=== PATIENT | female | born 1955 | race Caucasian/White ===

== ENCOUNTER 2024-01-10 12:28 | Emergency (ER) | payer BC, OTHER ==
[~2024-01-10] VITALS: Ht 165.1 cm; Wt 70.3 kg
[2024-01-10 12:35] VITALS: BP 117/54; PULSE 80; RESP 18; TEMP 97.7; O2SAT 97
[2024-01-10] MEDS ORDERED: CAPS1ADH5 TP (14:13)
[2024-01-10] MEDS ORDERED: NAPR-1704 PO (14:13)
== END 2024-01-10 14:27 | disposition home or self-care (01) ==
LOC: MED 12:28
DX: H53.8 Other visual disturbances (principal); S40.011A Contusion of right shoulder, initial encounter; S50.01XA Contusion of right elbow, initial encounter; E11.9 Type 2 diabetes mellitus without complications; Z79.899 Other long term (current) drug therapy; W01.0XXA Fall on same level from slipping, tripping and stumbling without subsequent striking against object, initial encounter; Y93.89 Activity, other specified; Y92.89 Other specified places as the place of occurrence of the external cause; Y99.8 Other external cause status
CPT/HCPCS: 70450; 73030; 73080; 99284